=== PATIENT | female | born 1965 | race Caucasian/White ===

== ENCOUNTER 2018-05-15 22:01 | Inpatient (IN) | payer OTHER ==
[~2018-05-15] VITALS: Ht 162.6 cm; Wt 77.6 kg
[2018-05-15] MEDS ORDERED: POLY17PO25 PO (22:14)
[2018-05-15] MEDS ORDERED: ZOLP-350 PO (22:14)
[2018-05-15] MEDS ORDERED: ESTR0.62 PO (22:14)
[2018-05-15] MEDS ORDERED: SENN8.6T34 PO (22:14)
[2018-05-15] MEDS ORDERED: MONT10TA PO (22:14)
[2018-05-15] MEDS ORDERED: PROG100C PO (22:14)
--- NOTE | 2018-05-15 22:18 | ER Report ---
History and Physical Time Seen By MD: 22:18 Hx. of Stated Complaint: Patient with right upper quadrant pain. HPI/ROS CHIEF COMPLAINT: right upper abdominal pain HISTORY OF PRESENT ILLNESS: This is a 52 year old female. She is having right upper quadrant abdominal pain. Started this afternoon. Worsens with eating and moving. Associated with nausea. Having loose stools. No problems urinating. She has no fevers or chills. Pain is severe. No back pain. Does not radiate. No rashes. History of gallbladder ultrasound in the past that showed sludge. She did have pizza tonight which set of the pain. Allergies: Coded Allergies: codeine (Verified Allergy, Mild, nausea, 05/15/18) Home Meds Reported Medications Sennosides (SENNA) 8.6 Mg Tablet, PO 05/15/18 Polyethylene Glycol 3350 (MIRALAX) 17 Gm Powd.pack, 17 GM PO, PKT 05/15/18 Zolpidem Tartrate (AMBIEN) 10 Mg Tablet, 1 TAB PO QHS, TAB 05/15/18 Montelukast Sodium (SINGULAIR) 10 Mg Tablet, 1 TAB PO QDAY, TAB 05/15/18 Estrogens, Conjugated 0.625 Mg Tab (PREMARIN 0.625 MG TAB) 0.625 Mg Tablet, 0.625 MG PO QDAY, TAB 05/15/18 Progesterone,Micronized (PROGESTERONE) 100 Mg Capsule, PO, CAPSULE 05/15/18 Reviewed Nurses Notes: Yes Hx Substance Use Disorder: No Hx Alcohol Use: Yes (occ) Constitutional Vital Sign - Last 24 Hours 05/15/18 05/15/18 05/16/18 22:06 23:41 00:29 Temp 99.0 Pulse 113 88 Resp 16 16 B/P (MAP) 136/106 (116) Pulse Ox 95 99 O2 Delivery Room Air O2 Flow Rate 2.0 2 Physical Exam General Appearance: The patient is alert. Acute distress due to pain. Eyes: Pupils are equal, round. No pallor, injection or icterus. ENT: Mucous membranes are moist. Normal oral mucosa. Neck: Supple and non tender. Respiratory: Lungs are clear to auscultation. Cardiovascular: Regular rate and rhythm. No murmurs, gallops or rubs. Gastrointestinal: Abdomen is soft, but tender in the right upper quadrant with guarding and rebound. Non-distended. Normal active bowel sounds. No costovertebral angle tenderness with percussion. Neurological: Alert and oriented x3. Skin: Warm and dry. No rashes. Musculoskeletal: Extremities are nontender. No tenderness in palpation of the thoracic and lumbar spine. DIFFERENTIAL DIAGNOSIS: After history and physical exam, differential diagnosis was considered for abdominal pain including but not limited to appendicitis, cholecystitis, gastritis and urinary tract problems. Medical Decision Making Data Points Result Diagram: 05/15/18 2213 05/15/18 2213 Laboratory Hematology Test 05/15/18 22:13 05/15/18 23:29 Red Blood Count 4.52 M/uL (4.17-5.56) Mean Corpuscular Volume 90.2 fL (80.0-96.0) Mean Corpuscular Hemoglobin 30.7 pg (26.0-33.0) Mean Corpuscular Hemoglobin Concent 34.0 g/dL (32.0-36.0) Red Cell Distribution Width 12.3 % (11.5-14.5) Mean Platelet Volume 9.1 fL (7.2-11.1) Neutrophils (%) (Auto) 70.3 % (39.4-72.5) Lymphocytes (%) (Auto) 20.7 % (17.6-49.6) Monocytes (%) (Auto) 6.0 % (4.1-12.4) Eosinophils (%) (Auto) 2.6 % (0.4-6.7) Basophils (%) (Auto) 0.4 % (0.3-1.4) Nucleated RBC Relative Count (auto) 0.0 /100WBC Neutrophils # (Auto) 9.0 K/uL (2.0-7.4) Lymphocytes # (Auto) 2.6 K/uL (1.3-3.6) Monocytes # (Auto) 0.8 K/uL (0.3-1.0) Eosinophils # (Auto) 0.3 K/uL (0.0-0.5) Basophils # (Auto) 0.0 K/uL (0.0-0.1) Nucleated RBC Absolute Count (auto) 0.00 K/uL Sodium Level 139 mmol/L (137-145) Potassium Level 3.3 mmol/L (3.5-5.0) Chloride Level 98 mmol/L (98-107) Carbon Dioxide Level 28 mmol/L (22-31) Blood Urea Nitrogen 10 mg/dl (7-18) Creatinine 0.80 mg/dl (0.52-1.04) Glomerular Filtration Rate Calc > 60.0 Random Glucose 133 mg/dl (75-110) Calcium Level 9.9 mg/dl (8.4-10.2) Total Bilirubin 0.4 mg/dl (0.2-1.3) Aspartate Amino Transf (AST/SGOT) 29 U/L (0-35) Alanine Aminotransferase (ALT/SGPT) 25 U/L (0-56) Alkaline Phosphatase 75 U/L (0-126) Total Protein 8.0 g/dl (6.3-8.2) Albumin 4.4 g/dl (3.5-5.0) Amylase Level 75 U/L (0-110) Lipase 85 U/L (23-300) Urine Color Straw Urine Clarity Clear Urine pH 8.0 pH (4.8-9.5) Urine Specific [place] 1.003 Urine Protein Negative mg/dL (NEGATIVE) Urine Glucose (UA) Negative mg/dL (NEGATIVE) Urine Ketones Negative mg/dL (NEGATIVE) Urine Blood Negative (NEGATIVE) Urine Nitrite Negative (NEGATIVE) Urine Bilirubin Negative (NEGATIVE) Urine Urobilinogen Negative mg/dL (0.2-1.9) Urine Leukocyte Esterase Negative (NEGATIVE) Urine RBC None /HPF (0-2/HPF) Urine WBC 1 /HPF (0-5/HPF) Urine Squamous Epithelial Cells Few /LPF (</=FEW) Urine Bacteria Negative /HPF (NONE-FEW) Urine Mucus None /HPF (NONE-FEW) Chemistry Test 05/15/18 22:13 05/15/18 23:29 White Blood Count 12.8 k/uL (4.5-11.0) Red Blood Count 4.52 M/uL (4.17-5.56) Hemoglobin 13.9 g/dL (12.0-16.0) Hematocrit 40.8 % (34.0-47.0) Mean Corpuscular Volume 90.2 fL (80.0-96.0) Mean Corpuscular Hemoglobin 30.7 pg (26.0-33.0) Mean Corpuscular Hemoglobin Concent 34.0 g/dL (32.0-36.0) Red Cell Distribution Width 12.3 % (11.5-14.5) Platelet Count 277 K/uL (150-450) Mean Platelet Volume 9.1 fL (7.2-11.1) Neutrophils (%) (Auto) 70.3 % (39.4-72.5) Lymphocytes (%) (Auto) 20.7 % (17.6-49.6) Monocytes (%) (Auto) 6.0 % (4.1-12.4) Eosinophils (%) (Auto) 2.6 % (0.4-6.7) Basophils (%) (Auto) 0.4 % (0.3-1.4) Nucleated RBC Relative Count (auto) 0.0 /100WBC Neutrophils # (Auto) 9.0 K/uL (2.0-7.4) Lymphocytes # (Auto) 2.6 K/uL (1.3-3.6) Monocytes # (Auto) 0.8 K/uL (0.3-1.0) Eosinophils # (Auto) 0.3 K/uL (0.0-0.5) Basophils # (Auto) 0.0 K/uL (0.0-0.1) Nucleated RBC Absolute Count (auto) 0.00 K/uL Glomerular Filtration Rate Calc > 60.0 Calcium Level 9.9 mg/dl (8.4-10.2) Total Bilirubin 0.4 mg/dl (0.2-1.3) Aspartate Amino Transf (AST/SGOT) 29 U/L (0-35) Alanine Aminotransferase (ALT/SGPT) 25 U/L (0-56) Alkaline Phosphatase 75 U/L (0-126) Total Protein 8.0 g/dl (6.3-8.2) Albumin 4.4 g/dl (3.5-5.0) Amylase Level 75 U/L (0-110) Lipase 85 U/L (23-300) Urine Color Straw Urine Clarity Clear Urine pH 8.0 pH (4.8-9.5) Urine Specific [place] 1.003 Urine Protein Negative mg/dL (NEGATIVE) Urine Glucose (UA) Negative mg/dL (NEGATIVE) Urine Ketones Negative mg/dL (NEGATIVE) Urine Blood Negative (NEGATIVE) Urine Nitrite Negative (NEGATIVE) Urine Bilirubin Negative (NEGATIVE) Urine Urobilinogen Negative mg/dL (0.2-1.9) Urine Leukocyte Esterase Negative (NEGATIVE) Urine RBC None /HPF (0-2/HPF) Urine WBC 1 /HPF (0-5/HPF) Urine Squamous Epithelial Cells Few /LPF (</=FEW) Urine Bacteria Negative /HPF (NONE-FEW) Urine Mucus None /HPF (NONE-FEW) Urinalysis Test 05/15/18 23:29 Urine Color Straw Urine Clarity Clear Urine pH 8.0 pH (4.8-9.5) Urine Specific [place] 1.003 Urine Protein Negative mg/dL (NEGATIVE) Urine Glucose (UA) Negative mg/dL (NEGATIVE) Urine Ketones Negative mg/dL (NEGATIVE) Urine Blood Negative (NEGATIVE) Urine Nitrite Negative (NEGATIVE) Urine Bilirubin Negative (NEGATIVE) Urine Urobilinogen Negative mg/dL (0.2-1.9) Urine Leukocyte Esterase Negative (NEGATIVE) Urine RBC None /HPF (0-2/HPF) Urine WBC 1 /HPF (0-5/HPF) Urine Squamous Epithelial Cells Few /LPF (</=FEW) Urine Bacteria Negative /HPF (NONE-FEW) Urine Mucus None /HPF (NONE-FEW) EKG/Imaging Imaging Limited ultrasound of the abdomen: Indication: Right upper quadrant pain. Technique: Routine imaging, with Doppler. Comparison: None. Gallbladder: Multiple echogenic calculi are present in the lumen. The gallbladder wall appears thickened, suggesting acute cholecystitis. Biliary tree: Dilated. The CBD measures 8 mm. No calculi are clearly identified in the lumen. Liver: Normal in size, shape, and echogenicity. The right lobe measures 15.7 cm. No focal liver lesions are identified. The portal vein is patent with antegrade flow. Pancreas: Well visualized and unremarkable. Spleen: Not evaluated. Kidneys: The right kidney measures 10.3 x 5.6 x 5.1 cm and appears unremarkable. The left kidney was not evaluated. Aorta and IVC: Unremarkable, as visualized. Ascites: None seen. IMPRESSION: Multiple calculi are present in the lumen of the gallbladder. There is thickening of gallbladder wall, suggesting acute cholecystitis. Report Dictated By: Chris Velez MD at 05/16/2018 12:28 AM ED Course/Re-evaluation Clinical Indication for ER IV: Hydration, IV Access ED Course Labs with mild elevation of white blood cell count, but normal differential. Temperature was 99.0. No fevers tonight. Normal liver function testing. She had an ultrasound tonight that showed gallbladder sludge as well as stones and a thickened wall. I called and spoke with , general surgery, and we will admit with plans for surgery in the morning for cholecystitis. Zosyn 3.375g IV was given. She initially had Morphine for pain, minimal relief, then switched to Dilaudid with much better relief. Decision to Disposition Date: May 16, 2018 Decision to Disposition Time: 01:00 Depart Departure Latest Vital Signs Vital Signs Date Time Temp Pulse Resp B/P (MAP) Pulse Ox O2 Delivery O2 Flow Rate FiO2 05/16/18 00:29 88 16 136/106 (116) 99 2 05/15/18 22:06 99.0 Room Air Impression: Primary Impression: Cholecystitis Condition: Improved Disposition: [facility] May 15, 2018 22:18
[2018-05-15] MEDS ORDERED: NS(*) 0.9% 1000 ML BAG 1,000 ML IV ONE (22:24)
[2018-05-15] MEDS ORDERED: PANTOPRAZOLE SOD 40 MG IV VIAL IVP ONE (22:25)
[2018-05-15] MEDS ORDERED: MORPHINE 4 MG/ML SDV IVP ONE (22:25)
[2018-05-15] MEDS ORDERED: ONDANSETRON 4 MG/2 ML VIAL IVP ONE (22:25)
[2018-05-15 22:36] LABS: PLATELET COUNT, AUTOMATED 277 K/uL (150-450)
[2018-05-15] MEDS ORDERED: HYDROmorphone* 1 MG/ML 1 MG/ML ML IVP ONE (23:00)
[2018-05-16] VITALS (16 sets, daily range): BP systolic 110–138; BP diastolic 74–98; BMI 29.4
--- NOTE | 2018-05-16 00:38 | RADIOLOGY IMAGING REPORT ---
FACILITY: [facility] PATIENT NAME: Qasim Ramesh : 1965 MR: [id number] V: [id number] EXAM DATE: ORDERING PHYSICIAN: ELIS CHAO TECHNOLOGIST: Location: [facility] Patient: Qasim Ramesh : 1965 Visit/Account:[id number] Date of Sevice: 05/15/2018 Limited ultrasound of the abdomen: Indication: Right upper quadrant pain. Technique: Routine imaging, with Doppler. Comparison: None. Gallbladder: Multiple echogenic calculi are present in the lumen. The gallbladder wall appears thicke hemalatha, suggesting acute cholecystitis. Biliary tree: Dilated. The CBD measures 8 mm. No calculi are clearly identified in the lumen. Liver: Normal in size, shape, and echogenicity. The right lobe measures 15.7 cm. No focal liver lesio ns are identified. The portal vein is patent with antegrade flow. Pancreas: Well visualized and unremarkable. Spleen: Not evaluated. Kidneys: The right kidney measures 10.3 x 5.6 x 5.1 cm and appears unremarkable. The left kidney was not evaluated. Aorta and IVC: Unremarkable, as visualized. Ascites: None seen. IMPRESSION: Multiple calculi are present in the lumen of the gallbladder. There is thickening of gall bladder wall, suggesting acute cholecystitis. Report Dictated By: Chris Velez MD at 05/16/2018 12:28 AM Report E-Signed By: Chris Velez MD at 05/16/2018 12:33 AM WSN:[id number]
[2018-05-16] MEDS ORDERED: PIPERACILLIN/TAZO*3.375GM VIAL 3.375 GM in NS(*) 0.9% 100 ML ADDVANT BAG 100 ML IVPB ONE ×2 (00:55→07:10)
[2018-05-16] MEDS ORDERED: HYDROmorphone* 1 MG/ML 1 MG/ML ML IVP ONE (00:55)
[2018-05-16] MEDS ORDERED: HYDROmorphone PCA 6 MG/30 ML IV PRN ×2 (01:00→15:45)
[2018-05-16] MEDS ORDERED: NALOXONE HCL 0.4 MG/ML VIAL IVP PRN ×2 (01:00→15:55)
[2018-05-16] MEDS ORDERED: CYCL10TA29 PO (02:00)
[2018-05-16] MEDS ORDERED: OMEP-125 PO (02:00)
[2018-05-16] MEDS ORDERED: MULT-1176 PO (02:00)
[2018-05-16] MEDS ORDERED: ONDANSETRON 4 MG/2 ML VIAL IVP PRN (02:55)
[2018-05-16] MEDS ORDERED: KCL/D1/2NS 20 MEQ 1000 ML 1,000 ML IV SCH (02:55)
[2018-05-16] MEDS ORDERED: PIPERACILLIN/TAZO*3.375GM VIAL 3.375 GM in NS(*) 0.9% 100 ML ADDVANT BAG 100 ML IVPB SCH ×4 (03:00→12:00)
[2018-05-16] MEDS ORDERED: IOPAMIDOL 61% 75 ML INFUS BTL 75 ML ONE (07:22)
[2018-05-16] MEDS ORDERED: BUPIV/EPI 0.25% 1:200,000 50ML INFIL ONE (07:22)
[2018-05-16] MEDS ORDERED: ROPIVACAINE 0.2% 20 ML VIAL ONE (07:22)
[2018-05-16] MEDS ORDERED: FAMOTIDINE(*) 20MG/50ML PREMIX 50 ML IVPB ONE (07:29)
--- NOTE | 2018-05-16 07:34 | General Surgery Consultation ---
History of Present Illness Requesting Physician Dr Friedman Reason for Consult cholecystitis Chief Complaint cholecystitis History of Present Illness 52 year old female from [place] who is in [place] visiting her son. She developed right upper quadrant abdominal pain yesterday after lunch. The pain is under right rib cage and radiates to right shoulder. The pain is associated with nausea and vomiting. She denies fevers and jaundice. She was noted to have a leukocytosis 12k and normal LFTs. She had a gallbladder US that showed cholelithiasis and a thickened gallbladder wall suggestive of cholecystitis and a CBD diameter of 8mm. She has had a prior laparoscopy for a SYSTEM TRAINER issue with her fallopian tubes per her report. She does not take antiplatelet or anticoagulant meds. She is relatively healthy. Non-smoker. She was started on zosyn last night. History Problems: (1) Cholecystitis Status: Acute Home Meds Reported Medications Cyclobenzaprine Hcl (CYCLOBENZAPRINE HCL) 10 Mg Tablet, 10 MG PO HS, #9 TAB 05/16/18 Multivits,Ca,Minerals/Iron/Fa (WOMEN'S DAILY CAPLET) 1 Each Tablet, 1 EACH PO 05/16/18 Omeprazole (OMEPRAZOLE) 20 Mg Capsule., 1 CAP PO QDAY, CAP 05/16/18 Sennosides (SENNA) 8.6 Mg Tablet, PO QHS 05/15/18 Polyethylene Glycol 3350 (MIRALAX) 17 Gm Powd.pack, 17 GM PO QDAY, PKT 05/15/18 Zolpidem Tartrate (AMBIEN) 10 Mg Tablet, 1 TAB PO QHS, TAB 05/15/18 Montelukast Sodium (SINGULAIR) 10 Mg Tablet, 1 TAB PO QDAY, TAB 05/15/18 Estrogens, Conjugated 0.625 Mg Tab (PREMARIN 0.625 MG TAB) 0.625 Mg Tablet, 0.625 MG PO QDAY, TAB 05/15/18 Progesterone,Micronized (PROGESTERONE) 100 Mg Capsule, PO, CAPSULE 05/15/18 Allergies: Coded Allergies: codeine (Verified Allergy, Mild, nausea, 05/15/18) Review of Systems All Systems Reviewed/Normal: Yes, Except as Noted Exam Vital Signs Vital Signs Date Time Temp Pulse Resp B/P (MAP) Pulse Ox O2 Delivery O2 Flow Rate FiO2 05/16/18 07:13 98.3 124 18 126/93 (104) 96 Nasal Cannula 2.0 General Appearance: Alert, Awake, No Acute Distress, Afebrile Neuro: No Gross deficits Eyes: PERRLA ENT: Normal Neck: No Masses Cardiovascular: Normal Rhythm & Peripheral Pulses Respiratory: No Respiratory Distress GI: Other (focal peritoneal signs in the right upper quadrant with gaurding and rebound. non-distended. ) Musculoskeletal: No Weakness/Pain Extremities: Perfused Integumentary: Skin Intact without Lesion / Mass Psych: Alert & Oriented X3 Medical Decision Making Data Points Result Diagram: 05/15/18 2213 05/15/18 2213 EKG / Imaging Monitor Interpretation: Normal Sinus Rhythm Pre-Admit Course Medical Record Review: Yes Assessment and Plan Problems: (1) Cholecystitis Status: Acute Assessment & Plan: plan for laparoscopic cholecystectomy with IOC low suspicion for choledocholithiases given her normal LFTs but her bile duct is somewhat prominent at 8mm discussed the rational and risks of the procedure. risks include bleeding, infection, bile leak, bile duct injury, injury to adjacent structures. pt is NPO and has been on zosyn since last night plan to observe 24 hours after surgery Venous Thromboembolism VTE Risk Physician Assess for VTE Risk: Yes Patient's VTE Risk: Low Antithrombotics Is Pt On Any Antithrombotics?: No KALEE MEEHAN MD May 16, 2018 07:34
[2018-05-16] MEDS ORDERED: NORMOSOL R SOLN(*) 1000 ML BAG 1,000 ML IV ONE (07:42)
[2018-05-16] MEDS ORDERED: LIDO/EPI 1% MDV 1:100,000 20ML INFIL ONE (07:51)
--- NOTE | 2018-05-16 08:08 | EKG ---
FACILITY: [facility] PATIENT NAME: BRIDGER CALLEJAS : [id number] MR: [id number] V: [id number] EXAM DATE: ORDERING PHYSICIAN: KALEE MEEHAN TECHNOLOGIST: KIM Cantu Reason : PRE OP Blood Pressure : / mmHG Vent. Rate : 101 BPM Atrial Rate : 101 BPM P-R Int : 150 ms QRS Dur : 080 ms QT Int : 362 ms P-R-T Axes : 031 -03 033 degrees QTc Int : 469 ms Sinus tachycardia Otherwise normal ECG No previous ECGs available Confirmed by RAMIREZ RUTH ([id number]) on 05/17/2018 2:48:15 PM Referred By: SHEFALI Confirmed By:RAMIREZ RUTH
[2018-05-16 08:14] LABS: PLATELET COUNT, AUTOMATED 192 K/uL (150-450)
[2018-05-16] MEDS ORDERED: HYDROmorphone HCL 2 MG/ML SDV ONE (08:30)
[2018-05-16] MEDS ORDERED: ONDANSETRON 4 MG/2 ML VIAL ONE ×2 (09:03→11:54)
[2018-05-16] MEDS ORDERED: PROPOFOL EMUL(*) 10MG/ML 20 ML 20 ML ONE (09:03)
[2018-05-16] MEDS ORDERED: SUCCINYLCHOL CHL 200MG/10ML VL ONE (09:03)
[2018-05-16] MEDS ORDERED: ROCURONIUM BROM 10 MG/ML 10 ML ONE (09:03)
[2018-05-16] MEDS ORDERED: DEXAMETHASONE SOD PHOS 10MG/ML ONE (09:03)
[2018-05-16] MEDS ORDERED: NS 0.9% IRRIGATION 1000ML PLCT IR ONE (10:12)
--- NOTE | 2018-05-16 10:30 | Post Operative Note ---
Operative Note - ENT Physicians Surgeon: Nick Tierney MD Anesthesia: GETA Diagnosis Pre-Op Diagnosis: cholelithiasis and acute cholecystitis Post-Op Diagnosis: same Procedure Findings: 1. acute inflammation, dense adhesions in the cystic triangle 2. Critical view obtained 3. unable to perform cholangiogram. Procedure(s): laparoscopic cholecystectomy Specimen Removed:(Maybe N/A): gallbladder Complications: none Fluids Estimated Blood Loss: 25cc Dictated Date OP Note Dictated: May 16, 2018 Time OP Note Dictated: 10:30 Copies to: RAMIREZ AGUIRRE MD, JOSHUA MD May 16, 2018 10:30
--- NOTE | 2018-05-16 10:34 | RADIOLOGY IMAGING REPORT ---
FACILITY: [facility] [place] PATIENT NAME: Qasim Ramesh : 1965 MR: [id number] V: [id number] EXAM DATE: ORDERING PHYSICIAN: KALEE MEEHAN TECHNOLOGIST: Location: [facility] Patient: Qasim Ramesh : 1965 Visit/Account:[id number] Date of Sevice: 05/16/2018 CHOLANGIOGRAM OPERATIVE History: Cholecystitis, intraoperative cholangiogram. COMPARISON: None Findings: Single intraoperative fluoroscopic view upper abdomen obtained during intraoperative cholan giogram. There is some extravasation of contrast. Images are limited. Please refer to the operative r eport for complete description of the procedure and findings. Fluoroscopy time 12.5 seconds. IMPRESSION: Intraoperative fluoroscopy used for guidance. Report Dictated By: Caleb Martinez MD at 05/16/2018 10:28 AM Report E-Signed By: Caleb Martinez MD at 05/16/2018 10:30 AM WSN:[id number]
[2018-05-16] MEDS ORDERED: fentaNYL CITR 100 MCG/2 ML AMP ONE ×2 (10:56→11:27)
--- NOTE | 2018-05-16 12:53 | OPERATIVE REPORT 1 ---
EVENT DATE: May 16, 2018 SURGEON: Nick Tierney MD ANESTHESIOLOGIST: Tahir Rain MD ANESTHESIA: General endotracheal anesthesia. PREOPERATIVE DIAGNOSIS Cholelithiasis with acute cholecystitis. POSTOPERATIVE DIAGNOSIS Cholelithiasis with acute cholecystitis. PROCEDURE PERFORMED Laparoscopic cholecystectomy. ESTIMATED BLOOD LOSS 25 mL WOUND CLASS Class III. FINDINGS 1. Distended and acutely inflamed gallbladder with dense adhesions near the cystic triangle, making the dissection exceedingly difficult. 2. There were multiple stones within the cystic duct which were milked back. 3. An attempt was made at performing a cholangiogram which was unsuccessful due to the large diameter of the cystic duct and also a tear in the gallbladder that caused reflux of all the contrast. 4. The cystic duct was approximately 15 mm in diameter and required placement of an Endoloop to control. 5. A 19-Singaporean Elias drain was placed into the gallbladder fossa due to soilage of gallbladder contents which spilled during retraction of the acutely inflamed gallbladder with a fragile wall. Soilage was irrigated with 3L of saline. PROCEDURE IN DETAIL The patient was brought to the operating room and placed in the supine position. Prior to rolling her back, we completed informed consent which was signed by the patient. She underwent general endotracheal anesthesia without difficulty. She was positioned in the supine position with her right arm tucked. The abdomen was prepped with chlorhexidine, and she was sterilely draped. A timeout was performed. Zosyn was infusing prior to making an incision. We began by a 10 mm supraumbilical incision using the Jim technique to open the fascia directly and then bluntly through the peritoneum. Two stay sutures were placed of 0 Vicryl suture. The 12 mm Jim trocar was secured in place, and the abdomen was inflated. We then placed a 10 mm xiphoid and two 5 mm lateral trocars. Upon inspection, the gallbladder was acutely inflamed. There were some wispy adhesions of omentum to the duodenum that were easily swept off. The dome of the gallbladder was grasped and retracted over the liver by my journeyman operator assistant, and the infundibulum was grasped and retracted laterally. This began a very tedious dissection of the cystic triangle of all the fatty tissue and adhesions and to elevate the gallbladder off the cystic plate. There was dense inflammation in this area, most of which was swept away bluntly using suction yeast supervisor and careful use of the [place] dissector. The cystic artery was wrapping anterior to the cystic duct and was dissected out, clipped twice on the stay side with 5 mm clips and once on the gallbladder side and cut. This allowed better exposure of the cystic triangle. There was also the node of Calot which was sitting on top of this artery which was dissected off. We then began our dissection of the cystic duct which first appeared that it was going to be somewhat short and large in diameter, but following extensive dissection, we were able to obtain length on this. While I was dissecting the posterior side, I noted that there were a few gallstones within the cystic duct which were easily milked back. I then continued my dissection to get completely around the cystic duct and inadvertently had entered the cystic duct. I used this to attempt to perform a cholangiogram with an Sanders clamp and cholangiocatheter, but there was too much contrast leakage and was unable to perform this. After ensuring that I was completely around the cystic duct, I attempted to place 10 mm clips across it, but these clips were too small to come across the duct in its entirety, so I cut the duct near the infundibulum and then placed a 3-0 PDS Endoloop below my ductotomy. We then removed the gallbladder from the gallbladder fossa using hook electrocautery. Before completely removing the gallbladder, I inspected the gallbladder fossa for any bleeding and cauterized this. We then irrigated with 3 L of saline until the effluent was clear. I placed a 19-Singaporean Elias drain which I pulled out our lateral trocar site. I put the gallbladder into an Endo Catch bag, and this was removed through the umbilical port. I watched my ports be removed under direct vision. There was no bleeding. I then closed the umbilical trocar site with a [id number] 0 Vicryl suture and also tied my stay sutures together fairly secure. I then covered my incisions with a dressing with Steri-Strips, Mastisol, and a sterile dressing. The patient was transferred to the PACU where we plan to wait for her to stay 24 hours for observation on antibiotics. CALLIE
[2018-05-16] MEDS: PIPERACILLIN/TAZO*3.375GM VIAL 3.375 GM in NS(*) 0.9% 100 ML ADDVANT BAG 100 ML IVPB SCH ×2 (14:09→19:16)
[2018-05-16] MEDS ORDERED: KCL 2 MEQ/ML 20 MEQ/10 ML VIAL 20 MEQ in D5 1/2 NS(*) 1000 ML BAG 1,000 ML IV PRN (15:45)
[2018-05-16] MEDS: ONDANSETRON 4 MG/2 ML VIAL IVP PRN ×2 (17:53→21:45)
[2018-05-16] MEDS: KCL/D1/2NS 20 MEQ 1000 ML 1,000 ML IV SCH ×2 (19:13→23:55)
[2018-05-16] MEDS: PROMETHAZINE 25 MG/ML 1 ML AMP IVP PRN (19:28)
[2018-05-16] MEDS: HYDROmorphone* 1 MG/ML 1 MG/ML ML IVP PRN ×2 (19:29→23:06)
[2018-05-17 00:13] VITALS: BP 111/75
[2018-05-17] MEDS: PIPERACILLIN/TAZO*3.375GM VIAL 3.375 GM in NS(*) 0.9% 100 ML ADDVANT BAG 100 ML IVPB SCH ×4 (01:30→20:37)
[2018-05-17] MEDS: PROMETHAZINE 25 MG/ML 1 ML AMP IVP PRN ×2 (01:30→18:09)
[2018-05-17] MEDS: HYDROmorphone* 1 MG/ML 1 MG/ML ML IVP PRN ×2 (03:12→21:31)
[2018-05-17] MEDS: ONDANSETRON 4 MG/2 ML VIAL IVP PRN ×2 (03:12→20:50)
[2018-05-17 03:41] VITALS: BP 108/80
[2018-05-17] MEDS: KCL/D1/2NS 20 MEQ 1000 ML 1,000 ML IV SCH ×2 (04:34→16:04)
[2018-05-17 06:16] LABS: PLATELET COUNT, AUTOMATED 165 K/uL (150-450)
[2018-05-17 07:54] VITALS: BP 106/73
[2018-05-17] MEDS ORDERED: SCOPOLAMINE 1.5 MG PATCH TD ONE (07:55)
--- NOTE | 2018-05-17 08:16 | General Surgery Progress Note ---
Subjective Progress Notes Subjective pain and nausea with vomiting overnight no fevers Patient Complains of: Gastrointestinal: Nausea, Vomiting, No Flatus, No Bowel Movement Physical Exam Vital Signs Date Time Temp Pulse Resp B/P (MAP) Pulse Ox O2 Delivery O2 Flow Rate FiO2 05/17/18 07:56 95 Nasal Cannula 1.0 05/17/18 07:54 97.8 97 20 106/73 (84) General Appearance: Alert, Awake, No Acute Distress, Afebrile Neuro: No Gross deficits ENT: Normal Cardiovascular: Normal Rhythm & Peripheral Pulses Respiratory: No Respiratory Distress GI: Other (soft, appropriately tender around incisions. non distended, hypoactive bowel sounds) : Other (no jones) Extremities: Perfused Integumentary: Skin Intact without Lesion / Mass Psych: Alert & Oriented X3, Appropriate Mood & Affect Result Diagram: 05/17/1851305/17/18513 Monitor Interpretation: Normal Sinus Rhythm Assessment and Plan Problems: (1) Cholecystitis Status: Acute Assessment & Plan: 05/17: POD1 lap maura labs appropriate, near normal LFTs. Drains appears serous. main issue is postop nausea/emesis clear liquid diet scopolamine patch for nausea, zofran/phenergan prn decrease MIVF 75 percocet, dPCA, add toradol today ambulate, started prophylactic lovenox for DVT today dispo: hopefully discharge 05/18, remove drain prior to discharge if appears ok Exam Sepsis Risk: No Definite Risk KALEE MEEHAN MD May 17, 2018 08:16
[2018-05-17] MEDS: KETOROLAC 15 MG/ML VIAL IVP SCH ×3 (09:09→20:36)
[2018-05-17] MEDS: ENOXAPARIN 40 MG/0.4ML SYR SC SCH (09:09)
[2018-05-17 20:43] VITALS: BP 125/81
[2018-05-17 22:58] VITALS: BP 125/81
--- NOTE | 2018-05-17 23:09 | RADIOLOGY IMAGING REPORT ---
FACILITY: [facility] PATIENT NAME: Qasim Ramesh : 1965 MR: [id number] V: [id number] EXAM DATE: ORDERING PHYSICIAN: KALEE MEEHAN TECHNOLOGIST: Location: [facility] [place] Patient: Qasim Ramesh : 1965 Visit/Account:[id number] Date of Sevice: 05/17/2018 Portable chest: Indication: NG tube placement. Technique: A single frontal film was obtained. Comparison: None. Lines and tubes: The tip of the NG tube is in the proximal stomach. Skeletal and soft tissue structures: Intact and unremarkable. Heart and mediastinum: Within normal limits. Lung arana: Slightly hypoexpanded, but clear. No focal opacity or consolidation. Pleural spaces: Unremarkable. Impression: The tip of the NG tube is in the stomach. Report Dictated By: Chris Velez MD at 05/17/2018 11:04 PM Report E-Signed By: Chris Velez MD at 05/17/2018 11:06 PM WSN:[id number]
[2018-05-18] MEDS: PIPERACILLIN/TAZO*3.375GM VIAL 3.375 GM in NS(*) 0.9% 100 ML ADDVANT BAG 100 ML IVPB SCH ×4 (02:18→20:15)
[2018-05-18] MEDS: KETOROLAC 15 MG/ML VIAL IVP SCH ×4 (02:19→20:15)
[2018-05-18 02:28] VITALS: BP 120/73
[2018-05-18 06:11] LABS: PLATELET COUNT, AUTOMATED 155 K/uL (150-450)
--- NOTE | 2018-05-18 06:33 | General Surgery Progress Note ---
Subjective Progress Notes Subjective "i'm feeling better than yesterday" afebrile pain improved no flatus, still feels distended Physical Exam Vital Signs Date Time Temp Pulse Resp B/P (MAP) Pulse Ox O2 Delivery O2 Flow Rate FiO2 05/18/18 02:28 98.9 90 12 120/73 (89) 96 05/17/18 22:58 Nasal Cannula 1.0 General Appearance: Alert, Awake, No Acute Distress, Afebrile ENT: Normal, Other (no icterus) Cardiovascular: Regular Rate and Rhythm Respiratory: No Respiratory Distress GI: Soft and Non-Tender (soft, non tender, minimal distension, incisions c/d/i , BALDEV serosanguinous) Extremities: Soft and Non Tender Integumentary: Skin Intact without Lesion / Mass Psych: Alert & Oriented X3 Result Diagram: 05/18/18 0513 05/18/18 05 Monitor Interpretation: Normal Sinus Rhythm Assessment and Plan Problems: (1) Cholecystitis Status: Acute Assessment & Plan: 05/17: POD2 lap maura NGT placed last night for vomiting, minimal output overnight NPO with sips/chips, continue NGT f/u LFTs which are pending, leukocytosis resolved scopolamine patch for nausea, zofran/phenergan prn decrease MIVF 75 percocet, dPCA, toradol ambulate, prophylactic lovenox dispo: awaiting return of bowel function, d/c home to [place] when recovered Exam Sepsis Risk: No Definite Risk KALEE MEEHAN MD May 18, 2018 06:33
[2018-05-18 07:13] VITALS: BP 119/77
[2018-05-18] MEDS ORDERED: HYDROmorphone HCL 2 MG/ML SDV IVP PRN (08:25)
[2018-05-18] MEDS: KCL/D1/2NS 20 MEQ 1000 ML 1,000 ML IV SCH (08:35)
[2018-05-18] MEDS: PANTOPRAZOLE SOD 40 MG IV VIAL IVP SCH (08:36)
[2018-05-18] MEDS: ENOXAPARIN 40 MG/0.4ML SYR SC SCH (08:36)
[2018-05-18] MEDS: ACETAMINOPHEN(*)1000 MG/100 ML 100 ML IVPB SCH ×3 (09:10→22:01)
[2018-05-18 10:08] VITALS: Ht 162.6 cm; Wt 77.6 kg
[2018-05-18 10:48] VITALS: BP 120/80
[2018-05-18 15:59] VITALS: BP 126/6
[2018-05-18] MEDS: ONDANSETRON 4 MG/2 ML VIAL IVP PRN (22:01)
[2018-05-18 23:23] VITALS: BP 126/83
[2018-05-19] MEDS: PIPERACILLIN/TAZO*3.375GM VIAL 3.375 GM in NS(*) 0.9% 100 ML ADDVANT BAG 100 ML IVPB SCH ×3 (02:13→14:05)
[2018-05-19] MEDS: KETOROLAC 15 MG/ML VIAL IVP SCH ×4 (02:13→20:11)
[2018-05-19] MEDS: ACETAMINOPHEN(*)1000 MG/100 ML 100 ML IVPB SCH ×4 (03:20→21:46)
[2018-05-19] MEDS: KCL/D1/2NS 20 MEQ 1000 ML 1,000 ML IV SCH ×2 (04:19→23:51)
[2018-05-19 06:05] LABS: PLATELET COUNT, AUTOMATED 158 K/uL (150-450)
[2018-05-19 07:12] VITALS: BP 115/77
--- NOTE | 2018-05-19 07:43 | General Surgery Progress Note ---
Subjective Progress Notes Subjective No flatus or BM yet, feels a little bloated but feels like she may be close to passing gas. Physical Exam Vital Signs Date Time Temp Pulse Resp B/P (MAP) Pulse Ox O2 Delivery O2 Flow Rate FiO2 05/18/18 23:23 98.4 78 18 126/83 (97) 95 Nasal Cannula 1.0 Intake and Output 05/20/18 06:59 # Voids 1 General Appearance: Alert, Awake, No Acute Distress, Afebrile GI: Other (Soft, mild appropriate TTP, dressings look good, drain with serosanguinous output.) Extremities: Warm, Perfused Result Diagram: 05/19/18 0529 05/19/18 05 Monitor Interpretation: Normal Sinus Rhythm Assessment and Plan Problems: (1) Cholecystitis Status: Acute Assessment & Plan: 05/18: POD2 lap maura NGT placed last night for vomiting, minimal output overnight NPO with sips/chips, continue NGT f/u LFTs which are pending, leukocytosis resolved scopolamine patch for nausea, zofran/phenergan prn decrease MIVF 75 percocet, dPCA, toradol ambulate, prophylactic lovenox dispo: awaiting return of bowel function, d/c home to [place] when recovered 05/19/18: POD#3. Still with postop ileus. Awaiting return of bowel function. NG not putting out much, 150mL overnight. Continue bowel rest and decompression until she starts passing flatus. Continue IV fluids, lovenox, PPI , etc. Ambulation, pulmonary hygiene. (2) Postoperative ileus Status: Acute Assessment & Plan: See above Condition Stable. Time Spent: < 30 min Exam Sepsis Risk: No Definite Risk RAMIREZ AGUIRRE MD May 19, 2018 07:43
[2018-05-19] MEDS: PANTOPRAZOLE SOD 40 MG IV VIAL IVP SCH (08:38)
[2018-05-19] MEDS: ENOXAPARIN 40 MG/0.4ML SYR SC SCH (08:40)
[2018-05-19 12:40] VITALS: BP 118/78
[2018-05-19 15:06] VITALS: BP 137/84
--- NOTE | 2018-05-19 16:26 | Medical Nutrition Therapy ---
Nutrition Anthropometrics Height (Inches): 64.00 Height (Calculated Centimeters: 162.082690 Weight (Pounds): 171 Weight (Calculated Kilograms): 77.706 Brian Nutrition Score: Very Poor Brian Nutrition Risk Score: 19 Dietary Referral Nutrition Risk Factors: Nutrition Risk Comment: Physical Findings Physical Appearance: Overweight BMI 25-29 Skin Appearance Skin Appearance: Edema Edema Location Modifier: Right Edema Location: Arm Type of Edema: Degree of Edema: Gastrointestinal Symptoms GI Symtoms: Constipation, Change in Bowel Pattern Tube Present: NG Bowel Sounds: Recent Bowel Pattern: Stool Characteristics: Nutritional Diagnosis Nutritional Risk Acuity 1: GI Obstruction (ileus ) Nutritional Risk Acuity 3: Nausea Past Medical History: Cholecystitis, post/ op ileus Nutritional Acuity: 1-High Nutrition Diagnosis: Inadequate Food Intake Nutrition Etiology: Physiological Causes Energy Requirement: 1574 (Garcia [place] Adj BMI >27.5 X 1.2 AF) Protein Requirement: 78 (1g/kg) Fluid Requirement: 1574 (1ml/kg) Diet Type: NPO/Ice Chips Only Nutrition Intervention: Change diet, Incr diet as tolerated Nutritional Support Recommended Enteral / Parental: TPN Recommended Goal Rate: 63ml/hr Recommended Duration: 24 (24hr/day) Recommended Calories: 1530 Recommended Protein: 63 Recommended Lipids Calories: 250 Total Recommended Calories: 1780 kcal Nutrition Monitoring & Eval RD Patient Assessment Time: [address] Assessment Type: RD Screen Patient Nutrition Acuity: 3-Mild Follow Up Date: May 22, 2018 Nutritional Comment: Pt admitted with cholecystitis and laparoscopic cholecystectomy. Overwt with BMI of 29.4. Glu 135, High AST/ALT. Receiving Clear liquid/NPO diet with no reports of intakefor 3 days. Recommend nutr support if diet not advanced. Follow labs, intake, diet progression, etc. 05/18 Pt diet change to NPO ice chips only. Pt experience post op nausea. Pt is on scopolamine patch to help with nausea. Liver enzymes slightly elevated and alb (2.7). Per doctor notes, if pt progress improves, pt may be discharged today. Will continue to monitor pt progress,labs and diet advancement. -WA Pt on day 4 NPO Ice chips only. Pt may benefit from nutrition support. TPN would be recommend due to post op on ileus. TPN would be at 63ml/hr with total goal rate 1500ml/24hr. TPN will provide 150kcal and 63g of protein. This will meet 102% of her total calories and 80% of her protein needs. No BM at this time. Pt has low H/H, BUN 96), and alb (2.7). Will continue to monitor pt progress, labs, and diet change. -ANGELICA MEEK May 19, 2018 16:07
[2018-05-19 19:05] VITALS: BP 131/92
[2018-05-20] MEDS: ACETAMINOPHEN(*)1000 MG/100 ML 100 ML IVPB SCH (02:35)
[2018-05-20] MEDS: KETOROLAC 15 MG/ML VIAL IVP SCH (02:35)
[2018-05-20 02:43] VITALS: BP 125/81
[2018-05-20 06:20] LABS: PLATELET COUNT, AUTOMATED 184 K/uL (150-450)
[2018-05-20] MEDS ORDERED: ACETAMINOPHEN 325 MG TAB PO PRN (07:00)
[2018-05-20] MEDS ORDERED: IBUPROFEN 600 MG TAB PO PRN (07:00)
--- NOTE | 2018-05-20 07:03 | General Surgery Progress Note ---
Subjective Progress Notes Subjective No complaints this morning. Had BM yesterday so NG removed and clear diet started. Doing well on this. Physical Exam Vital Signs Date Time Temp Pulse Resp B/P (MAP) Pulse Ox O2 Delivery O2 Flow Rate FiO2 05/20/18 06:00 86 05/20/18 02:43 98.4 59 14 125/81 (96) Room Air 05/19/18 07:20 1.0 General Appearance: Alert, Awake, No Acute Distress, Afebrile GI: Soft and Non-Tender (Incisions look good without erythema or drainage. Drain with serous drainage.) Extremities: Warm, Perfused Result Diagram: 05/20/18 0535 05/20/18 0535 Monitor Interpretation: Normal Sinus Rhythm Assessment and Plan Problems: (1) Cholecystitis Status: Resolved Assessment & Plan: 05/18: POD2 lap maura NGT placed last night for vomiting, minimal output overnight NPO with sips/chips, continue NGT f/u LFTs which are pending, leukocytosis resolved scopolamine patch for nausea, zofran/phenergan prn decrease MIVF 75 percocet, dPCA, toradol ambulate, prophylactic lovenox dispo: awaiting return of bowel function, d/c home to [place] when recovered 05/19/18: POD#3. Still with postop ileus. Awaiting return of bowel function. NG not putting out much, 150mL overnight. Continue bowel rest and decompression until she starts passing flatus. Continue IV fluids, lovenox, PPI , etc. Ambulation, pulmonary hygiene. 05/20/18: POD#4. Ileus resolving. Regular diet today. Stop IV fluids and convert all meds to PO. If tolerates regular diet and PO meds, will remove drain this afternoon and will hope for d/c to home tomorrow. (2) Postoperative ileus Status: Resolved Assessment & Plan: See above Condition Stable. Time Spent: < 30 min Exam Sepsis Risk: No Definite Risk RAMIREZ AGUIRRE MD May 20, 2018 07:03
[2018-05-20 07:37] VITALS: BP 125/80
[2018-05-20] MEDS: PANTOPRAZOLE SOD 40 MG TABEC PO SCH (08:57)
[2018-05-20] MEDS: ENOXAPARIN 40 MG/0.4ML SYR SC SCH (08:57)
[2018-05-20 10:56] VITALS: BP 130/95
[2018-05-20 15:35] VITALS: BP 137/82
[2018-05-20 19:54] VITALS: BP 131/85
[2018-05-20] MEDS: DOCUSATE SODIUM 100 MG CAP PO SCH (20:55)
[2018-05-20 23:29] VITALS: BP 130/80
[2018-05-21] MEDS ORDERED: DOCU-202 PO (07:20)
[2018-05-21] MEDS ORDERED: PER PO (07:20)
--- NOTE | 2018-05-21 07:22 | Short(Outpt) Discharge Summary ---
Discharge Summary Reason for Hosp/Final Diag: (1) Cholecystitis Status: Resolved Hospital Course & Plan: 05/18: POD2 lap maura NGT placed last night for vomiting, minimal output overnight NPO with sips/chips, continue NGT f/u LFTs which are pending, leukocytosis resolved scopolamine patch for nausea, zofran/phenergan prn decrease MIVF 75 percocet, dPCA, toradol ambulate, prophylactic lovenox dispo: awaiting return of bowel function, d/c home to [place] when recovered 05/19/18: POD#3. Still with postop ileus. Awaiting return of bowel function. NG not putting out much, 150mL overnight. Continue bowel rest and decompression until she starts passing flatus. Continue IV fluids, lovenox, PPI , etc. Ambulation, pulmonary hygiene. 05/20/18: POD#4. Ileus resolving. Regular diet today. Stop IV fluids and convert all meds to PO. If tolerates regular diet and PO meds, will remove drain this afternoon and will hope for d/c to home tomorrow. 05/21/18: POD#5. Doing well. Tolerating diet. Will d/c to home today. (2) Postoperative ileus Status: Resolved Hospital Course & Plan: See above Departure Discharge to: Home, Self Care Discharge Instructions Home Meds Active Scripts Oxycodone/Acetaminophen (OXYCODONE/ACETAMINOPHEN 5MG/325 MG) 5 Mg/325 Mg Tab, 1- 2 TAB PO Q4H Y for PAIN, #30 TAB 0 Refills Prov:RAMIREZ AGUIRRE MD 05/21/18 Docusate Sodium (DOCUSATE SODIUM) 100 Mg Capsule, 1 CAP PO BID, #30 CAPSULE 0 Refills Prov:RAMIREZ AGUIRRE MD 05/21/18 Reported Medications Cyclobenzaprine Hcl (CYCLOBENZAPRINE HCL) 10 Mg Tablet, 10 MG PO HS, #9 TAB 05/16/18 Multivits,Ca,Minerals/Iron/Fa (WOMEN'S DAILY CAPLET) 1 Each Tablet, 1 EACH PO 05/16/18 Omeprazole (OMEPRAZOLE) 20 Mg Capsule.dr, 1 CAP PO QDAY, CAP 05/16/18 Sennosides (SENNA) 8.6 Mg Tablet, PO QHS 05/15/18 Polyethylene Glycol 3350 (MIRALAX) 17 Gm Powd.pack, 17 GM PO QDAY, PKT 05/15/18 Zolpidem Tartrate (AMBIEN) 10 Mg Tablet, 1 TAB PO QHS, TAB 05/15/18 Montelukast Sodium (SINGULAIR) 10 Mg Tablet, 1 TAB PO QDAY, TAB 05/15/18 Estrogens, Conjugated 0.625 Mg Tab (PREMARIN 0.625 MG TAB) 0.625 Mg Tablet, 0.625 MG PO QDAY, TAB 05/15/18 Progesterone,Micronized (PROGESTERONE) 100 Mg Capsule, PO, CAPSULE 05/15/18 Diet: Regular Activity: As Tolerated Special Instructions: You may leave the incisions open to air but leave the steristrips in place until they fall off on their own. You can shower as tolerated but don't immerse the incisions for 2 weeks after surgery. Take 1 aspirin, 325mg, once each day until you get back home, starting today. RAMIREZ AGUIRRE MD May 21, 2018 07:22
[2018-05-21 07:32] VITALS: BP 126/87
[2018-05-21] MEDS: ENOXAPARIN 40 MG/0.4ML SYR SC SCH (08:14)
[2018-05-21] MEDS: PANTOPRAZOLE SOD 40 MG TABEC PO SCH (08:14)
[2018-05-21] MEDS: DOCUSATE SODIUM 100 MG CAP PO SCH (08:14)
== END 2018-05-21 09:10 | disposition home or self-care (01) | DRG 418 ==
LOC: ER 22:18 → MED 05-16 01:18
PROVIDERS: ADMIT Surgery; ATTEND Surgery
PROC: 0FT44ZZ Resection of Gallbladder, Percutaneous Endoscopic Approach (ICD-10-PCS; principal; 2018-05-16 08:09)
DX: K80.00 Calculus of gallbladder with acute cholecystitis without obstruction (principal); K91.30 Postprocedural intestinal obstruction, unspecified as to partial versus complete; K66.0 Peritoneal adhesions (postprocedural) (postinfection); J45.909 Unspecified asthma, uncomplicated; K21.9 Gastro-esophageal reflux disease without esophagitis; Y83.8 Other surgical procedures as the cause of abnormal reaction of the patient, or of later complication, without mention of misadventure at the time of the procedure; Y73.3 Surgical instruments, materials and gastroenterology and urology devices (including sutures) associated with adverse incidents; Z88.8 Allergy status to other drugs, medicaments and biological substances
CPT/HCPCS: 36415; 71045; 74300; 76705; 76942; 81001; 82040; 82150; 82247; 82248; 82310; 82374; 82435; 82565; 82947; 83690; 84075; 84132; 84155; 84295; 84450; 84460; 84520; 85025; 88304; 93005; 96361; 96365; 96375; 96376; 99284; C9113; J0131; J0330; J1100; J1170; J1650; J1885; J2270; J2405; J2543; J2550; J2704; J2795; J3010; J3480; J3490; J7030; J7050; Q9967